=== PATIENT | male | born 1950 | race Caucasian/White ===

== ENCOUNTER 2017-02-04 23:59 | Emergency (ER) | payer SELFPAY ==
[~2017-02-04] VITALS: Ht 177.8 cm; Wt 86.9 kg
[2017-02-05 00:05] VITALS: BP 132/74; PULSE 74; RESP 18; TEMP 97.5; O2SAT 95
[2017-02-05] MEDS ORDERED: ADVA45AE INH (00:08)
[2017-02-05] MEDS ORDERED: AUGM875T3 PO (00:21)
[2017-02-05] MEDS ORDERED: CLAR5TAB9 PO (00:21)
[2017-02-05] MEDS ORDERED: PRED20 PO (00:21)
--- NOTE | 2017-02-05 00:21 | PD ---
HPI Chief Complaint: Cold / Flu Symptoms Time Seen by Provider: 00:07 Travel History International Travel<30 days: No Contact w/Intl Traveler<30days: No Traveled to known affect area: No History of Present Illness HPI This is a 66-year-old male who presents to the emergency department with nasal congestion that's been going on for 4 days, constant, severe, keeping him up at night because he can't breathe. Initially his drainage was clear and now is yellow. He denies any fevers or chills. He says he has severe sinus pressure. He has a history of allergies and asthma. He's been trying to take [place]- Synephrine nasal spray but it's not helping. He is here visiting and staying with his sister who has a dog and he thinks this is making everything worse. PFSH Past Medical History Asthma: Yes Tetanus Vaccination: Unknown Influenza Vaccination: No Past Surgical History Surgical History: No Previous Surgery Social History Alcohol Use: Yes (occ) Tobacco Use: No Substance Use: No Allergies-Medications (Allergen,Severity, Reaction): Coded Allergies: No Known Allergies (Unverified , 02/05/17) Reported Meds & Prescriptions Reported Meds & Active Scripts Active Reported Advair Hfa 12 GM Inh (Fluticasone-Salmeterol 12 GM Inh) 45-21 Mcg/Act Aer 2 Puff INH BID Review of Systems Except as stated in HPI: all other systems reviewed are Neg Physical Exam Narrative GENERAL:Well appearing, no acute distress SKIN: Focused skin assessment warm and dry. HEAD: Atraumatic. Normocephalic. EYES: Pupils equal and round. No injection or drainage. ENT: Moist mucous membranes. Nasal congestion with yellow discharge. NECK: Trachea midline. CARDIOVASCULAR: Regular rate and rhythm. No murmur appreciated. RESPIRATORY: Clear to auscultation. Breath sounds equal bilaterally. GASTROINTESTINAL: Abdomen soft, non-tender, nondistended. MUSCULOSKELETAL: No obvious deformities. NEUROLOGICAL: Awake and alert. No obvious cranial nerve deficits. Moving all extremities. PSYCHIATRIC: Appropriate mood and affect; insight and judgment normal. Data Data Last Documented VS Vital Signs Date Time Temp Pulse Resp B/P (MAP) Pulse Ox O2 Delivery O2 Flow Rate FiO2 02/05/17 00:05 97.5 74 18 132/74 (93) 95 MDM Medical Decision Making Medical Screen Exam Complete: Yes Emergency Medical Condition: Yes Interpretation(s) Afebrile, no tachycardia, normotensive Differential Diagnosis Allergic sinusitis, bacterial sinusitis, bronchitis, pneumonia Narrative Course This is a 66-year-old male who presents to the emergency department with symptoms of sinusitis. I suspect there is an allergic component. He is well- appearing and nontoxic on exam. He'll be prescribed prednisone, Augmentin and Claritin-D. Diagnosis Primary Impression: Sinusitis Qualified Codes: J01.00 - Acute maxillary sinusitis, unspecified Patient Instructions: General Instructions Additional Instructions: If you develop severe chest pain, shortness of breath, sweating, lightheadedness , dizziness or difficulty breathing return to the emergency department immediately. Followup with your primary care physician in 2-3 days if your symptoms are not resolved. Med/Other Pt SpecificInfo: Prescription(s) given Scripts Loratadine-Pseudoephedrine 12 HR (Claritin-D 12 HR) 5-120 Mg Tab 1 TAB PO BID for Allergy Management, #20 TAB 0 Refills Prov: Tania Foster MD 02/05/17 Prednisone (Prednisone) 20 Mg Tab 40 MG PO DAILY, #10 TAB 0 Refills Take 40 mg (2 tablets) daily for 5 days Prov: Tania Foster MD 02/05/17 Amoxicillin-Clavulanate (Augmentin) 875-125 Mg Tab 1 TAB PO BID for Infection for 7 Days, #14 TAB 0 Refills Prov: Tania Foster MD 02/05/17 Disposition: 01 DISCHARGE HOME Condition: Stable Tania Foster MD Feb 05, 2017 00:21
== END 2017-02-05 00:45 | disposition home or self-care (01) ==
LOC: PHED 23:59
DX: J32.9 Chronic sinusitis, unspecified (principal); J45.909 Unspecified asthma, uncomplicated
CPT/HCPCS: 99284